=== PATIENT | female | born 1990 | race Caucasian/White ===

== ENCOUNTER 2018-07-29 22:03 | Emergency (ER) | payer OTHER ==
--- NOTE | 2018-07-29 22:13 | C.PDOC ---
Time Seen by Provider: 07/29/18 22:13 Disposition Counseled Patient/Family Regarding: Studies Performed, Diagnosis - Disposition Disposition Time: 22:13
[2018-07-29] MEDS ORDERED: Sodium Chloride 0.9% 1,000 ML IV ONE (22:42)
[2018-07-29 23:10] LABS: VENOUS BLOOD GAS BASE EXCESS -0.7 mmol/L (0.0-2.0); VENOUS BLOOD GAS PCO2 36 mmHg (40-60); VENOUS BLOOD GAS PO2 22 mm/Hg (30-55); VENOUS BLOOD PH 7.42 (7.32-7.43)
[2018-07-29 23:18] LABS: BASO % 0.3 % (0.0-2.0); HEMOGLOBIN 13.6 g/dL (11.0-16.0); LYMPH # 0.9 K/uL (1.0-4.3); LYMPH % 20.2 % (20.0-40.0); MEAN CELL VOLUME 87.5 fL (81.0-99.0); MEAN CORPUSCULAR HEMOGLOBIN 30.1 pg (27.0-31.0); MEAN CORPUSCULAR HGB CONC 34.4 g/dL (33.0-37.0); MEAN PLATELET VOLUME 10.6 fL (7.2-11.7); MONO # 0.4 K/uL (0.0-0.8); MONO % 8.2 % (0.0-10.0); NEUT # 3.3 K/uL (1.8-7.0); NEUT % 71.3 % (50.0-75.0); NRBC % 0.1 % (0.0-2.0); PLATELET COUNT 125 K/uL (130-400); RED CELL DISTRIBUTION WIDTH 13.2 % (11.5-14.5); WHITE BLOOD COUNT 4.6 K/uL (4.8-10.8)
--- NOTE | 2018-07-29 23:20 | C.PDOC ---
History Of Present Illness The patient presents to the ED for evaluation of fever, nausea and vomiting which began around 2 days ago. Patient states she recently arrived from [place] one week ago. A couple days ago, she was evaluated by her doctor and prescribed Tamiflu for flu. Patient also reports decreased PO intake. Otherwise, she denies cough, shortness of breath, and diarrhea. Time Seen by Provider: 07/29/18 22:13 Chief Complaint (Nursing): Fever History Per: Patient History/Exam Limitations: no limitations Onset/Duration Of Symptoms: Days (2) Current Symptoms Are (Timing): Still Present Location Of Pain: None Sick Contacts (Context): None Associated Symptoms: Fever, Nausea, Vomiting. denies: Cough, Diarrhea Ear Symptoms: Bilateral: None Severity: None Pain Scale Rating Of: 0 Recent travel outside of the [place]: No Additional History Per: Patient Past Medical History Reviewed: Historical Data, Nursing Documentation, Vital Signs Vital Signs: Last Vital Signs Temp 102.1 F H 07/29/18 22:21 Pulse 107 H 07/29/18 22:21 Resp 20 07/29/18 22:21 BP 106/74 07/29/18 22:21 Pulse Ox 100 07/29/18 22:21 - Medical History PMH: No Chronic Diseases Surgical History: No Surg Hx Family History: States: Unknown Family Hx - Social History Hx Alcohol Use: No Hx Substance Use: No - Immunization History Hx Tetanus Toxoid Vaccination: No Hx Influenza Vaccination: No Hx Pneumococcal Vaccination: No Review Of Systems Constitutional: Positive for: Fever, Other (decreased PO intake ) Cardiovascular: Negative for: Chest Pain, Palpitations Respiratory: Negative for: Cough, Shortness of Breath Gastrointestinal: Positive for: Nausea, Vomiting. Negative for: Abdominal Pain, Diarrhea, Constipation Genitourinary: Negative for: Dysuria, Frequency, Hematuria Musculoskeletal: Negative for: Back Pain Skin: Negative for: Rash, Lesions, Jaundice, Bruising Neurological: Negative for: Weakness, Numbness Physical Exam - Physical Exam Appears: Non-toxic, No Acute Distress Skin: Warm, Dry Head: Normacephalic Eye(s): bilateral: Normal Inspection Oral Mucosa: Moist Neck: Supple Chest: Symmetrical, No Deformity, No Tenderness Cardiovascular: Rhythm Regular, No Murmur Respiratory: No Rales, No Rhonchi, No Wheezing, Other (speaking in complete sentences ) Gastrointestinal/Abdominal: Soft, No Tenderness, No Guarding, No Rebound Extremity: Normal ROM, Capillary Refill (less than 2 seconds ) Neurological/Psych: Oriented x3 ED Course And Treatment - Laboratory Results Result Diagrams: 07/29/18 23:10 07/29/18 23:10 Lab Results: pO2 22 mm/Hg (30-55) L 07/29/18 23:07 VBG pH 7.42 (7.32-7.43) 07/29/18 23:07 VBG pCO2 36 mmHg (40-60) L 07/29/18 23:07 VBG HCO3 22.8 mmol/L 07/29/18 23:07 VBG Total CO2 24.5 mmol/L (22-28) 07/29/18 23:07 VBG O2 Sat (Calc) 42.7 % (40-65) 07/29/18 23:07 VBG Base Excess -0.7 mmol/L (0.0-2.0) L 07/29/18 23:07 VBG Potassium 4.5 mmol/L (3.6-5.2) 07/29/18 23:07 Sodium 133.0 mmol/l (132-148) 07/29/18 23:07 Chloride 102.0 mmol/L (98-107) 07/29/18 23:07 Glucose 105 mg/dl (65-105) 07/29/18 23:07 Lactate 1.2 mmol/L (0.7-2.1) 07/29/18 23:07 O2 Sat by Pulse Oximetry: 100 Pulse Ox Interpretation: Normal - CT Scan/US CT A/P Other Rad Studies (CT/US): Read By Radiologist, Radiology Report Reviewed CT/US Interpretation: CT SCAN OF THE ABDOMEN AND PELVIS WITH CONTRAST. CLINICAL HISTORY: Abdominal pain. Elevated LFTs. TECHNIQUE: Multiple axial and coronal CT images were obtained through the abdomen and pelvis after administration of intravenous contrast material. COMMENTS: 2.9 cm left ovarian cyst. Mild diffu se thickening of the bladder. Fluid-filled stomach, small and large bowels. Moderate hepatomegaly. Minimal amount of reactive pericholecystic free fluid. There is no intra or extrahepatic biliary ductal dilatation. The spleen is normal. The gallbladder is within normal limits. The pancreas is of normal contour and attenuation characteristics. There is no evidence of adrenal mass. Both kidneys demonstrate prompt and equal nephrograms. The kidneys are normal in size, shape and configuration. There is no evidence of renal or ureteral mass. No renal or ureteral calculi are identified. There is no hydroureter or hydronephrosis. No evidence for appendicitis. There is no bowel wall thickening. No evidence for small or large bowel obstruction. There is no evidence of intrinsic or extrinsic bladder mass. Images of the lung bases show no evidence of pleural or parenchymal mass. There are no pleural effusions. The bony structures are free of lytic or blastic lesions. IMPRESSION: Uncompli cated gastroenteritis. Hepatomegaly. Please evaluate to exclude hepatitis. Minimal reactive pericholecystic free fluid. No evidence of cholelithiasis. Diffuse thickening of the bladder, underdistention versus mild cystitis. pt feels fine and wants to go home Progress Note: Bloodwork, urinalysis and CT A/P ordered and reviewed. Pepcid IVP, Zofran IVP and IV Fluids given. Reevaluation Time: 03:48 Reassessment Condition: Improved Disposition Counseled Patient/Family Regarding: Studies Performed, Diagnosis, Need For Followup, Rx Given - Disposition Referrals: [facility] [Outside] Disposition: HOME/ ROUTINE Disposition Time: 00:35 Condition: FAIR Additional Instructions: Please return if symptoms recur Prescriptions: Ondansetron ODT [Zofran ODT] 1 odt PO BID PRN #6 odt PRN Reason: Nausea/Vomiting Instructions: Fever, Adult (DC), Nausea and Vomiting, Adult (DC) Forms: [facility] (Maori) - Clinical Impression Clinical Impression: Fever, Vomiting, Elevated liver enzymes - Scribe Statement The provider has reviewed the documentation as recorded by the Scribe (Swati Segovia) Provider Attestation: All medical record entries made by the Scribe were at my direction and personally dictated by me. I have reviewed the chart and agree that the record accurately reflects my personal performance of the history, physical exam, medical decision making, and the department course for this patient. I have also personally directed, reviewed, and agree with the discharge instructions and disposition.
[2018-07-29 23:28] LABS: ALB/GLOB RATIO 1.2 (1.0-2.1); ALBUMIN 4.3 g/dL (3.5-5.0); ALT/SGPT 77 U/L (9-52); AST/SGOT 75 U/L (14-36); BLOOD UREA NITROGEN 11 mg/dL (7-17); CALCIUM 9.4 mg/dl (8.6-10.4); GFR NON-AFRICAN AMERICAN > 60; LIPASE 50 U/L (23-300)
[2018-07-29 23:33] LABS: HCG,QUALITATIVE URINE NEGATIVE (NEGATIVE)
[2018-07-29 23:48] LABS: SQUAMOUS EPITHIAL 5 /hpf (0-5); URINE BACTERIA OCC (<OCC); URINE BILIRUBIN NEGATIVE (NEGATIVE); URINE BLOOD NEGATIVE (NEGATIVE); URINE CLARITY Hazy (Clear); URINE COLOR Amber (YELLOW); URINE GLUCOSE (UA) NORMAL (Normal); URINE LEUKOCYTE ESTERASE NEG Leu/uL (Negative); URINE PROTEIN 1+ mg/dL (NEGATIVE)
[2018-07-30 00:44] LABS: INTRACELLULAR PARASITE NEGATIVE (NEGATIVE)
[2018-07-30] MEDS ORDERED: Iodixanol 320 mg/ml 150 ml Bottle IV ONE (01:26)
[2018-07-30 03:27] VITALS: O2SAT 100
[2018-07-30 04:42] VITALS: BP 119/64; PULSE 91; RESP 17; TEMP 99.6
[2018-07-30 08:28] LABS: HEPATITIS B SURFACE AG Negative (NEGATIVE)
[2018-07-30 08:35] LABS: HEPATITIS A IGM NEGATIVE (NEGATIVE); HEPATITIS B CORE AB NEGATIVE (NEGATIVE)
[2018-07-30 08:45] LABS: HEPATITIS C ANTIBODY NEGATIVE (NEGATIVE)
--- NOTE | 2018-07-30 11:23 | CT ---
Date of service: 07/30/2018 PROCEDURE: CT Abdomen and Pelvis with contrast HISTORY: abd pain, elevated lft's COMPARISON: None. TECHNIQUE: Contrast dose: 100 mL Visipaque 320 Radiation dose: Total exam DLP = 320.46 mGy-cm. This CT exam was performed using one or more of the following dose reduction techniques: Automated exposure control, adjustment of the mA and/or kV according to patient size, and/or use of iterative reconstruction technique. FINDINGS: LOWER THORAX: Unremarkable. LIVER: Mild hepatomegaly. Smooth contour. There is a nonspecific low-density 6 mm mass in the medial segment of the left hepatic lobe abutting the anterior capsule, nonspecific. No other mass is identified. There is no biliary ductal dilatation. The liver is normal in attenuation. GALLBLADDER AND BILE DUCTS: Wall mildly thickened, nonspecific. No calcified gallstones. Differential diagnosis would include hepatitis, cholecystitis, pancreatitis, or intrinsic appendix cellular disease. PANCREAS: Unremarkable. No gross lesion or ductal dilatation. SPLEEN: Unremarkable. ADRENALS: Unremarkable. No mass. KIDNEYS AND URETERS: Unremarkable. No hydronephrosis. No solid mass. VASCULATURE: Unremarkable. No aortic aneurysm. No aortic atherosclerotic calcification or mural plaque present. Incidentally noted retroaortic left renal vein, a normal variant. BOWEL: There is circumferential mural thickening of the 2nd portion of the duodenum, nonspecific. No bowel obstruction. There is diverticulosis of the hepatic flexure of the colon without evidence of diverticulitis. There is mild circumferential mural thickening of several loops of proximal jejunum, a nonspecific finding. Consistent with nonspecific enteritis. APPENDIX: Normal appendix. PERITONEUM: Trace fluid in the cul-de-sac. LYMPH NODES: No retroperitoneal or pelvic lymphadenopathy. Few subcentimeter nodes are identified medial to the ascending colon, nonspecific. BLADDER: Unremarkable. REPRODUCTIVE: Unremarkable uterus. Left ovarian cyst, 2.9 cm. Consider correlation with transvaginal pelvic ultrasound. BONES: No acute fracture. OTHER FINDINGS: None. IMPRESSION: Mild hepatomegaly. Nonspecific 6 mm mass in the medial segment of the left hepatic lobe. Nonspecific circumferential mural thickening of the 2nd portion of the duodenum, nonspecific. Findings could also consistent with mild nonspecific enteritis involving proximal jejunum.. No bowel obstruction. 2.9 cm left ovarian cyst. Consider correlation with transvaginal pelvic ultrasound examination. Trace fluid in cul-de-sac. Nonspecific mural thickening of the gallbladder. See above. The preliminary findings for this examination were reported by [facility] at 3:23 a.m. on 07/30/2018.. There is concurrence of this report with the preliminary findings.
== END 2018-07-30 04:45 | disposition home or self-care (01) ==
LOC: C.ER 22:03
DX: R50.9 Fever, unspecified (principal); R11.10 Vomiting, unspecified; R74.8 Abnormal levels of other serum enzymes
CPT/HCPCS: 74177; 80053; 80074; 81001; 82803; 83690; 84703; 85025; 87040; 87205; 87207; 96361; 96374; 96375; 99285; J2405; J7030; Q9967

== ENCOUNTER 2018-07-31 15:12 | Inpatient (IN) | payer OTHER ==
[2018-07-31] MEDS ORDERED: Sodium Chloride 0.9% 1,000 ML IV STA (16:45)
[2018-07-31 17:07] LABS: BASO % 0.5 % (0.0-2.0); LYMPH # 1.4 K/uL (1.0-4.3); LYMPH % 32.3 % (20.0-40.0); MEAN CELL VOLUME 87.1 fL (81.0-99.0); MEAN CORPUSCULAR HEMOGLOBIN 29.2 pg (27.0-31.0); MEAN CORPUSCULAR HGB CONC 33.5 g/dL (33.0-37.0); MEAN PLATELET VOLUME 10.6 fL (7.2-11.7); MONO # 0.4 K/uL (0.0-0.8); NEUT # 2.5 K/uL (1.8-7.0); NEUT % 58.2 % (50.0-75.0); NRBC % 0.2 % (0.0-2.0); RBC 4.46 Mil/uL (3.80-5.20); RED CELL DISTRIBUTION WIDTH 13.6 % (11.5-14.5); WHITE BLOOD COUNT 4.3 K/uL (4.8-10.8)
[2018-07-31] MEDS ORDERED: Sodium Chloride 0.9% 1,000 ML ONE ×2 (17:07→18:17)
[2018-07-31 17:11] LABS: VENOUS BLOOD GAS BASE EXCESS 2.4 mmol/L (0.0-2.0); VENOUS BLOOD GAS PCO2 38 mmHg (40-60); VENOUS BLOOD GAS PO2 25 mm/Hg (30-55); VENOUS BLOOD PH 7.45 (7.32-7.43)
[2018-07-31 17:25] LABS: ALB/GLOB RATIO 1.2 (1.0-2.1); ALBUMIN 3.9 g/dL (3.5-5.0); ALT/SGPT 65 U/L (9-52); AST/SGOT 68 U/L (14-36); BLOOD UREA NITROGEN 5 mg/dL (7-17); CALCIUM 8.9 mg/dl (8.6-10.4); GFR NON-AFRICAN AMERICAN > 60
--- NOTE | 2018-07-31 17:26 | C.PDOC ---
History Of Present Illness 28 y/o female returns to the ER for positive blood culture for negative gram rods. Patient states that she recently returned from [place]. Patient was evaluated by her PMD for flu-like symptoms and she was prescribed Tamiflu. She was also evaluated by for fever and vomiting for the past 1 week in [facility] ER on 07/29/18. Patient had labwork and blood culture and she was discharged home. Patient was called today for positive blood culture and instructed to return to the ER. She notes that she is taking Tamiflu. She has been taking Tylenol every 4 hours for fever, however the fever returns after 2-3 years. She states that she has headache, dizziness, and generalized weakness.Denies having CP,SOB, vomiting, and abdominal pain. PMD: Dr.Anjali Lamar Time Seen by Provider: 07/31/18 16:31 Chief Complaint (Nursing): Flu-like Symptoms History Per: Patient History/Exam Limitations: no limitations Onset/Duration Of Symptoms: Days Current Symptoms Are (Timing): Still Present Severity: Moderate Past Medical History Reviewed: Historical Data, Nursing Documentation, Vital Signs Vital Signs: Last Vital Signs Temp 98.3 F 07/31/18 15:41 Pulse 88 07/31/18 15:41 Resp 20 07/31/18 15:41 BP 105/73 07/31/18 15:41 Pulse Ox 100 07/31/18 15:41 - Medical History PMH: No Chronic Diseases Other Surgeries: Hx of surgeries Family History: States: No Known Family Hx - Social History Hx Alcohol Use: No Hx Substance Use: No - Immunization History Hx Tetanus Toxoid Vaccination: No Hx Influenza Vaccination: No Hx Pneumococcal Vaccination: No Review Of Systems Except As Marked, All Systems Reviewed And Found Negative. Constitutional: Positive for: Fever, Weakness. Negative for: Chills Cardiovascular: Negative for: Chest Pain Respiratory: Negative for: Shortness of Breath Gastrointestinal: Negative for: Nausea, Vomiting Neurological: Positive for: Headache, Dizziness Physical Exam - Physical Exam Appears: No Acute Distress, Other (dehydrated) Skin: Normal Color, Warm, Dry Head: Atraumatic, Normacephalic Eye(s): bilateral: Normal Inspection Ear(s): Bilateral: Normal Nose: Normal Oral Mucosa: Dry Lips: Other (dry) Throat: Normal, No Erythema, No Exudate Neck: Supple Chest: Symmetrical Cardiovascular: Rhythm Regular Respiratory: Normal Breath Sounds, No Rales, No Rhonchi, No Wheezing Gastrointestinal/Abdominal: Normal Exam, Soft, No Tenderness, No Guarding, No Rebound Neurological/Psych: Oriented x3, Normal Speech ED Course And Treatment - Laboratory Results Result Diagrams: 07/31/18 17:02 07/31/18 17:02 Lab Results: pO2 25 mm/Hg (30-55) L 07/31/18 17:08 VBG pH 7.45 (7.32-7.43) H 07/31/18 17:08 VBG pCO2 38 mmHg (40-60) L 07/31/18 17:08 VBG HCO3 25.5 mmol/L 07/31/18 17:08 VBG Total CO2 27.6 mmol/L (22-28) 07/31/18 17:08 VBG O2 Sat (Calc) 52.5 % (40-65) 07/31/18 17:08 VBG Base Excess 2.4 mmol/L (0.0-2.0) H 07/31/18 17:08 VBG Potassium 3.4 mmol/L (3.6-5.2) L 07/31/18 17:08 Sodium 136.0 mmol/l (132-148) 07/31/18 17:08 Chloride 106.0 mmol/L (98-107) 07/31/18 17:08 Glucose 82 mg/dl (65-105) 07/31/18 17:08 Lactate 1.4 mmol/L (0.7-2.1) 07/31/18 17:08 O2 Sat by Pulse Oximetry: 100 (RA) Pulse Ox Interpretation: Normal Medical Decision Making Medical Decision Making: Impression: Dehydration secondary to Flu, Abdominal Pain Plan: --Labs --IV Fluids --Zofran IV 1752 Pt with normal WBC. Liver enzymes continue to be elevated. Pt to be started on Zosyn and cultures have been sent. Spoke with Dr. Silver and pt to be admitted to his service. Disposition - Disposition Disposition: HOSPITALIZED Disposition Time: 17:52 Condition: STABLE - Clinical Impression Clinical Impression: Bacteremia - Scribe Statement The provider has reviewed the documentation as recorded by the Sole Clement Provider Attestation: All medical record entries made by the Wilmanibe were at my direction and personally dictated by me. I have reviewed the chart and agree that the record accurately reflects my personal performance of the history, physical exam, medical decision making, and the department course for this patient. I have also personally directed, reviewed, and agree with the discharge instructions and disposition. Decision To Admit - Pt Status Changed To: Hospital Disposition Of: Observation - . Bed Request Type: Regular Admitting Physician: Sajan Silver Patient Diagnosis: Bacteremia
[2018-07-31] MEDS ORDERED: Piperacillin/Tazobact 3.375 gm 100 ML IVPB ONE (18:17)
[2018-07-31] MEDS: Sodium Chloride 0.9% 1,000 ML IV SCH (18:21)
[2018-07-31] MEDS: Piperacill/Tazo 3.375gm in Dex 3.375 GM/50 ML BAG IVPB SCH ×2 (18:21→23:51)
[2018-07-31 19:14] LABS: SQUAMOUS EPITHIAL 1 /hpf (0-5); URINE BACTERIA RARE (<OCC); URINE BILIRUBIN NEGATIVE (NEGATIVE); URINE BLOOD NEGATIVE (NEGATIVE); URINE CLARITY Clear (Clear); URINE COLOR Yellow (YELLOW); URINE GLUCOSE (UA) NORMAL (Normal); URINE LEUKOCYTE ESTERASE NEG Leu/uL (Negative); URINE PROTEIN NEGATIVE (NEGATIVE)
--- NOTE | 2018-08-01 00:05 | CP.PCM.HP ---
Present on Admission - Present on Admission Any Indicators Present on Admission: No Past Patient History - Infectious Disease Hx of Infectious Diseases: None - Past Social History Smoking Status: Never Smoked - PSYCHIATRIC Hx Substance Use: No - SURGICAL HISTORY Hx Surgeries: Yes Hx Section: Yes - ANESTHESIA Hx Anesthesia: Yes Hx Anesthesia Reactions: No Meds Allergies/Adverse Reactions: Allergies Allergy/AdvReac Type Severity Reaction Status Date / Time No Known Allergies Allergy Verified 07/31/18 15:44 Results - Vital Signs Recent Vital Signs: Last Vital Signs Temp 98.3 F 07/31/18 22:30 Pulse 78 07/31/18 22:30 Resp 20 07/31/18 22:30 BP 117/61 07/31/18 22:30 Pulse Ox 100 07/31/18 22:30 - Labs Result Diagrams: 07/31/18 17:02 07/31/18 17:02 Labs: Laboratory Results - last 24 hr 07/31/18 07/31/18 07/31/18 17:02 17:02 17:08 WBC 4.3 L RBC 4.46 Hgb 13.0 Hct 38.8 MCV 87.1 MCH 29.2 MCHC 33.5 RDW 13.6 Plt Count 160 MPV 10.6 Neut % (Auto) 58.2 Lymph % (Auto) 32.3 [place] % (Auto) 9.0 Eos % (Auto) 0.0 Baso % (Auto) 0.5 Neut # (Auto) 2.5 Lymph # (Auto) 1.4 [place] # (Auto) 0.4 Eos # (Auto) 0.0 Baso # (Auto) 0.0 pO2 25 L VBG pH 7.45 H VBG pCO2 38 L VBG HCO3 25.5 VBG Total CO2 27.6 VBG O2 Sat (Calc) 52.5 VBG Base Excess 2.4 H VBG Potassium 3.4 L Glucose 82 Lactate 1.4 Sodium 136 136.0 Potassium 3.9 Chloride 101 106.0 Carbon Dioxide 29 Anion Gap 11 BUN 5 L Creatinine 0.5 L Est GFR ( Amer) > 60 Est GFR (Non-Af Amer) > 60 Random Glucose 97 Calcium 8.9 Total Bilirubin 0.5 AST 68 H ALT 65 H Alkaline Phosphatase 137 H Total Protein 7.1 Albumin 3.9 Globulin 3.3 Albumin/Globulin Ratio 1.2 Venous Blood Potassium 3.4 L Urine Color Urine Clarity Urine pH Ur Specific [place] Urine Protein Urine Glucose (UA) Urine Ketones Urine Blood Urine Nitrate Urine Bilirubin Urine Urobilinogen Ur Leukocyte Esterase Urine WBC (Auto) Urine RBC (Auto) Ur Squamous Epith Cells Urine Bacteria 07/31/18 18:56 WBC RBC Hgb Hct MCV MCH MCHC RDW Plt Count MPV Neut % (Auto) Lymph % (Auto) [place] % (Auto) Eos % (Auto) Baso % (Auto) Neut # (Auto) Lymph # (Auto) [place] # (Auto) Eos # (Auto) Baso # (Auto) pO2 VBG pH VBG pCO2 VBG HCO3 VBG Total CO2 VBG O2 Sat (Calc) VBG Base Excess VBG Potassium Glucose Lactate Sodium Potassium Chloride Carbon Dioxide Anion Gap BUN Creatinine Est GFR ( Amer) Est GFR (Non-Af Amer) Random Glucose Calcium Total Bilirubin AST ALT Alkaline Phosphatase Total Protein Albumin Globulin Albumin/Globulin Ratio Venous Blood Potassium Urine Color Yellow Urine Clarity Clear Urine pH 7.0 Ur Specific [place] 1.008 Urine Protein Negative Urine Glucose (UA) Normal Urine Ketones Negative Urine Blood Negative Urine Nitrate Negative Urine Bilirubin Negative Urine Urobilinogen 2.0 H Ur Leukocyte Esterase Neg Urine WBC (Auto) < 1 Urine RBC (Auto) < 1 Ur Squamous Epith Cells 1 Urine Bacteria Rare
[2018-08-01] MEDS: Sodium Chloride 0.9% 1,000 ML IV SCH ×2 (03:59→14:35)
[2018-08-01] MEDS: Piperacill/Tazo 3.375gm in Dex 3.375 GM/50 ML BAG IVPB SCH ×3 (05:15→19:07)
--- NOTE | 2018-08-01 05:49 | HP ---
CHIEF COMPLAINT: Positive blood cultures. HISTORY OF PRESENT ILLNESS: This is a 28-year-old female with no significant past medical history. For almost one week, she is sick with fever, chills, body ache, and tiredness. She visited to emergency room. She had flu symptoms. She was started on Tamiflu. She has a recent visit to [place]. The patient was evaluated in [facility] Emergency Room 07/29/2018, and the patient was discharged. Her lab work was done, and the patient's blood cultures are positive. The patient was called back. The patient is in the hospital. At the moment, she has generalized weakness, chills, rigor, but she denies any history of abdominal pain, nausea, vomiting, or diarrhea. She denies any history of dysuria, hematuria, or pyuria. She denies any history of sneezing, itchy eyes, or itchy nose. The patient denies any history of cough, sore throat, or runny nose. There is no history of trauma, fall, or loss of consciousness. PAST MEDICAL HISTORY: Nothing significant. SOCIAL HISTORY: Nonsmoker, non-EtOH user. CURRENT MEDICATIONS: Tamiflu. PHYSICAL EXAMINATION: GENERAL: A young female, not in any acute distress. VITAL SIGNS: Blood pressure 105/73, pulse 80, respiratory rate 20, temperature 98.3. SKIN: No rashes. No bruises. No purpura. No petechiae. HEENT: Atraumatic and normocephalic. Negative pallor. Negative jaundice. Extraocular movements are intact. NECK: Supple. No JVD. No lymph node. No thyromegaly. No carotid bruit. CHEST WALL: Bilateral symmetrical expansion. LUNGS: Bilaterally clear. No rales. No rhonchi. CARDIOVASCULAR SYSTEM: PMI in fifth intercostal space. S1 and S2, regular. No heave. No thrill. ABDOMEN: Soft and nontender. Bowel sounds are positive. RECTAL: No masses. No bleed. EXTREMITIES: No clubbing, cyanosis, or edema. CENTRAL NERVOUS SYSTEM: Awake, alert, and oriented x3. ASSESSMENT: 1. Gram-negative septicemia. Etiology is unclear. It could be urinary tract infection versus intra-abdominal source of sepsis. Seems to be enterocolitis. 2. Dehydration. PLAN: Admit. Detailed orders are written. Seen and examined. Sajan Silver MD
--- NOTE | 2018-08-01 23:13 | CP.PCM.PN ---
Subjective - Date & Time of Evaluation Date of Evaluation: 08/01/18 Time of Evaluation: 19:00 - Subjective Subjective: dict Objective - Vital Signs/Intake and Output Vital Signs (last 24 hours): Temp Pulse Resp BP Pulse Ox 97.3 F L 77 20 100/65 99 08/01/18 16:04 08/01/18 16:04 08/01/18 16:04 08/01/18 16:04 08/01/18 16:04 Intake and Output: 08/01/18 08/02/18 18:59 06:59 Intake Total 1280 1000 Balance 1280 1000 - Medications Medications: Current Medications Acetaminophen (Tylenol 325mg Tab) 650 mg PO Q6 PRN PRN Reason: Headache Last Admin: 08/01/18 10:38 Dose: 650 mg Sodium Chloride (Sodium Chloride 0.9%) 1,000 mls @ 100 mls/hr IV .Q10H TWIN Last Admin: 08/01/18 14:35 Dose: 100 mls/hr Piperacillin Sod/Tazobactam Sod (Zosyn 3.375 Gm Iv Premix) 3.375 gm in 50 mls @ 100 mls/hr IVPB Q6H TWIN; Protocol Last Admin: 08/01/18 19:07 Dose: 100 mls/hr Influenza Virus Vaccine (Flucelvax Quad [id number] Syr) 60 mcg IM .ONCE ONE Stop: 08/02/18 10:01 Ondansetron HCl (Zofran Inj) 4 mg IVP Q6 PRN PRN Reason: Nausea/Vomiting Last Admin: 08/01/18 19:24 Dose: 4 mg Pneumococcal Polyvalent Vaccine (Pneumovax 23 Vaccine) 0.5 ml IM .ONCE ONE Stop: 08/02/18 10:01 - Labs Labs: 07/31/18 17:02 07/31/18 17:02
[2018-08-02] MEDS: Piperacill/Tazo 3.375gm in Dex 3.375 GM/50 ML BAG IVPB SCH ×2 (00:17→05:28)
[2018-08-02] MEDS: Sodium Chloride 0.9% 1,000 ML IV SCH ×4 (03:54→21:00)
--- NOTE | 2018-08-02 04:28 | PN ---
DATE: 08/01/2018 SUBJECTIVE: The patient is afebrile. Nausea. No vomiting. The patient is on antibiotics. No fever. She is on Zosyn. She is not in any distress. . PHYSICAL EXAMINATION: VITAL SIGNS: Blood pressure 100/65, pulse 77, respiratory rate 20, temperature 97.3. LUNGS: Clear. No rales. No rhonchi. CARDIOVASCULAR SYSTEM: PMI not localized. S1 and S2, regular. ABDOMEN: Soft. Nontender. Bowel sounds are positive. ASSESSMENT: 1. Septicemia, gram negative, which is due to diverticulitis. Sensitivity is pending. The patient is on Zosyn and she is afebrile. 2. Diverticulitis. 3. Dehydration. PLAN: Antibiotics. Monitor the patient. Sajan Silver MD
[2018-08-02] MEDS ORDERED: Pneumococcal 23-Valent Vaccine IM ONE (10:00)
[2018-08-02] MEDS ORDERED: Influenza Vaccine 60 mcg/0.5 mL SYR (4YR UP) IM ONE (10:00)
[2018-08-02] MEDS: cefTRIAXone 2 GM in Sodium Chloride 0.9% 100 ML IVPB SCH (10:19)
[2018-08-02 14:54] LABS: HEPATITIS B SURFACE AG Negative (NEGATIVE)
[2018-08-02 15:06] LABS: HEPATITIS A IGM NEGATIVE (NEGATIVE); HEPATITIS B CORE AB NEGATIVE (NEGATIVE)
[2018-08-02 15:12] LABS: HEPATITIS C ANTIBODY NEGATIVE (NEGATIVE)
--- NOTE | 2018-08-02 18:09 | CP.PCM.CON ---
History of Present Illness - History of Present Illness History of Present Illness: 28 y/o female admitted for positive blood culture for negative gram rods after recent ER visit for fever . Patient states that she recently returned from [place]. And evaluated in ER for fever and vomiting for 1 week in [facility] [place] ER on 07/29/18. Patient had labwork and blood culture as well as CT Abdomen and she was discharged home. Then Patient was evaluated by Dr Sherman and was prescribed Tamiflu. Yesterday Patient was called today for positive blood culture and instructed to return to the ER. . She states that she has headache, dizziness, and generalized weakness. Denies having CP,SOB, vomiting, and abdominal pain. Referred for ID eval for positive blood cultures Started on IV antibiotics upon admission Review of Systems - Review of Systems All systems: reviewed and no additional remarkable complaints except - Constitutional Constitutional: As Per HPI - EENT Eyes: absent: As Per HPI, Blind Spots, Blurred Vision, Change in Vision, Decreased Night Vision, Diplopia, Discharge, Dry Eye, Exophthalmos, Floaters, Irritation, Itchy Eyes, Loss of Peripheral Vision, Pain, Photophobia, Requires Corrective Lenses, Sees Flashes, Spots in Vision, Tunnel Vision, Other Visual Disturbances, Loss of Vision, Other Ears: absent: As Per HPI, Decreased Hearing, Ear Discharge, Ear Pain, Tinnitus, Abnormal Hearing, Disequilibrium, Dizziness, Other Nose/Mouth/Throat: absent: As Per HPI, Epistaxis, Nasal Congestion, Nasal Discharge, Nasal Obstruction, Nasal Trauma, Nose Pain, Post Nasal Drip, Sinus Pain, Sinus Pressure, Bleeding Gums, Change in Voice, Dental Pain, Dry Mouth, Dysphagia, Halitosis, Hoarsness, Lip Swelling, Mouth Lesions, Mouth Pain, Odynophagia, Sore Throat, Throat Swelling, Tongue Swelling, Facial Pain, Neck Pain, Neck Mass, Other - Breasts Breasts: absent: As Per HPI, Change in Shape, Mass, Pain, Nipple Discharge, Nipple Inversion, Skin Changes, Swelling, Other - Cardiovascular Cardiovascular: absent: As Per HPI, Acrocyanosis, Chest Pain, Chest Pain at Rest, Chest Pain with Activity, Claudication, Diaphoresis, Dyspnea, Dyspnea on Exertion, Edema, Irregular Heart Rhythm, Pain Radiating to Arm/Neck/Jaw, Leg Edema, Leg Ulcers, Lightheadedness, Orthopnea, Palpitations, Paroxysmal Nocturnal Dyspnea, Pedal Edema, Radiating Pain, Rapid Heart Rate, Slow Heart Rate, Syncope, Other - Respiratory Respiratory: absent: As Per HPI, Cough, Dyspnea, Hemoptysis, Dyspnea on Exertion, Wheezing, Snoring, Stridor, Pain on Inspiration, Chest Congestion, Excessive Mucous Production, Change in Mucous Color, Pain with Coughing, Other - Gastrointestinal Gastrointestinal: As Per HPI - Genitourinary Genitourinary: absent: As Per HPI, Change in Urinary Stream, Difficulty Urinating, Dysuria, Flank Pain, Hematuria, Pyuria, Nocturia, Urinary Incontinence, Urinary Frequency, Urinary Hesitance, Urinary Urgency, Voiding Freq/Small Amts, Freq UTI, Hx Renal/Bladder Calculi, Hx /Renal Surgery, Bladder Distension, Other - Reproductive: Female Reproductive:Female: absent: As Per HPI, Amenorrhea, Amenorrhea/ Control, Currently Menstual, Cycle <21 Days, Cycle >35 Days, Cycle Variable, Menses 1-7 Days, Menses >/= 8 Days, Menses Variable, Cycle > 4 Weeks Between, No Menses for 6 Months, Heavy Menses, Light Menses, Normal Menses, Spotting Between Cycles, S/P Hysterectomy, Menopausal, Post Menopausal, Premenarche, Abnormal Vaginal Bleeding, Dysmenorrhea, Dyspareunia, Genital Lesions, Genital Pruritis, Pelvic Pain, Prolapse Symptoms, Sexual Dysfunction, Vaginal Discharge, Vaginal Dryness, Vaginal Odor, Vaginal Pruritis, Other - Menstruation Menstruation: absent: As Per HPI, Amenorrhea, Amenorrhea/ Control, Currently Menstual, Cycle <21 Days, Cycle >35 Days, Cycle Variable, Menses 1-7 Days, Menses >/= 8 Days, Menses Variable, Cycle > 4 Weeks Between, No Menses for 6 Months, Heavy Menses, Light Menses, Normal Menses, Spotting Between Cycles, S/P Hysterectomy, Menopausal, Post Menopausal, Premenarche, Abnormal Vaginal Bleeding, Dysmenorrhea, Other - Musculoskeletal Musculoskeletal: absent: As Per HPI, Abnormal Gait, Arthralgias, Atrophy, Back Pain, Deformity, Joint Swelling, Limited Range of Motion, Loss of Height, Muscle Cramps, Muscle Weakness, Myalgias, Neck Pain, Numbness, Radiating Pain into Limb, Stiffness, Tingling, Other - Integumentary Integumentary: absent: As Per HPI, Acne, Alopecia, Bleeding Lesions, Change in Hair, Change in Nails, Change in Pigmentation, Changing Lesions, Dry Skin, Erythema, Furuncle, Hirsutism, Lesions, New Lesions, Non-Healing Lesions, Photosensitivity, Pruritus, Rash, Skin Pain, Skin Ulcer, Sores, Striae, Swelling, Unusual Bruising, Wounds, Jaundice, Other - Neurological Neurological: absent: As Per HPI, Abnormal Gait, Abnormal Hearing, Abnormal Movements, Abnormal Speech, Behavioral Changes, Burning Sensations, Confusion, Convulsions, Disequilibrium, Dizziness, Numbness, Focal Weakness, Frequent Falls, Headaches, Lack of Coordination, Loss of Vision, Memory Loss, Paresthesias, Radicular Pain, Restless Legs, Sensory Deficit, Syncope, Tingling, Tremor, Vertigo, Weakness, Other Visual Disturbances, Other - Psychiatric Psychiatric: absent: As Per HPI, Abnormal Sleep Pattern, Anhedonia, Anxiety, Auditory Hallucinations, Behavioral Changes, Change in Appetite, Change in Libido, Confusion, Depression, Difficulty Concentrating, Hallucinations, Homicidal Ideation, Hopelessness, Irritability, Memory Loss, Mood Swings, Panic Attacks, Paranoia, Suicidal Ideation, Visual Hallucinations, Tactile Hallucinations, Other - Endocrine Endocrine: absent: As Per HPI, Change in Body Appearance, Change in Libido, Cold Intolorance, Deepening of Voice, Excessive Sweating, Fatigue, Flushing, Heat Intolorance, Increase in Ring/Shoe/Hat Size, Palpitations, Polydipsia, Polyphagia, Polyuria, Other - Hematologic/Lymphatic Hematologic: absent: As Per HPI, Easy Bleeding, Easy Bruising, Lymphadenopathy, Other Past Patient History - Infectious Disease Hx of Infectious Diseases: None - Past Medical History & Family History Past Medical History?: Yes - Past Social History Smoking Status: Never Smoked - CARDIAC Hx Cardiac Disorders: No - PULMONARY Hx Respiratory Disorders: No - NEUROLOGICAL Hx Neurological Disorder: No - HEENT Hx HEENT Problems: No - RENAL Hx Chronic Kidney Disease: No - ENDOCRINE/METABOLIC Hx Endocrine Disorders: No - HEMATOLOGICAL/ONCOLOGICAL Hx Blood Disorders: No - INTEGUMENTARY Hx Dermatological Problems: No - MUSCULOSKELETAL/RHEUMATOLOGICAL Hx Falls: No - GASTROINTESTINAL Hx Gastrointestinal Disorders: No - GENITOURINARY/GYNECOLOGICAL Hx Genitourinary Disorders: No - PSYCHIATRIC Hx Psychophysiologic Disorder: No Hx Substance Use: No - SURGICAL HISTORY Hx Surgeries: Yes Hx Section: Yes - ANESTHESIA Hx Anesthesia: Yes Hx Anesthesia Reactions: No Hx Malignant Hyperthermia: No Meds Allergies/Adverse Reactions: Allergies Allergy/AdvReac Type Severity Reaction Status Date / Time No Known Allergies Allergy Verified 07/31/18 15:44 - Medications Medications: Current Medications Acetaminophen (Tylenol 325mg Tab) 650 mg PO Q6 PRN PRN Reason: Headache Last Admin: 08/02/18 04:39 Dose: 650 mg Sodium Chloride (Sodium Chloride 0.9%) 1,000 mls @ 100 mls/hr IV .Q10H TWIN Last Admin: 08/02/18 16:44 Dose: 100 mls/hr Ceftriaxone Sodium 2 gm/ (Sodium Chloride) 100 mls @ 100 mls/hr IVPB DAILY TWIN; Protocol Last Admin: 08/02/18 10:19 Dose: 100 mls/hr Ondansetron HCl (Zofran Inj) 4 mg IVP Q6 PRN PRN Reason: Nausea/Vomiting Last Admin: 08/01/18 19:24 Dose: 4 mg Physical Exam - Constitutional Appears: Non-toxic, No Acute Distress, Chronically Ill - Head Exam Head Exam: ATRAUMATIC, NORMAL INSPECTION, NORMOCEPHALIC - Eye Exam Eye Exam: EOMI, Normal appearance, PERRL Pupil Exam: NORMAL ACCOMODATION, PERRL - ENT Exam ENT Exam: Mucous Membranes Moist, Normal Exam - Neck Exam Neck exam: Positive for: Normal Inspection - Respiratory Exam Respiratory Exam: Clear to Auscultation Bilateral, NORMAL BREATHING PATTERN - Cardiovascular Exam Cardiovascular Exam: REGULAR RHYTHM - GI/Abdominal Exam GI & Abdominal Exam: Normal Bowel Sounds, Soft. absent: Tenderness - Rectal Exam Rectal Exam: Deferred - Extremities Exam Extremities exam: Positive for: normal inspection - Back Exam Back exam: NORMAL INSPECTION - Neurological Exam Neurological exam: Alert, CN II-XII Intact, Normal Gait, Oriented x3, Reflexes Normal - Psychiatric Exam Psychiatric exam: Normal Affect, Normal Mood - Skin Skin Exam: Dry, Intact, Normal Color, Warm Results - Vital Signs Recent Vital Signs: Last Vital Signs Temp 98.1 F 08/02/18 16:23 Pulse 88 08/02/18 16:23 Resp 20 08/02/18 16:23 BP 113/74 08/02/18 16:23 Pulse Ox 98 08/02/18 16:23 - Labs Result Diagrams: 07/31/18 17:02 07/31/18 17:02 Labs: Laboratory Results - last 24 hr 08/02/18 08/02/18 14:01 14:01 Hepatitis A IgM Ab Negative Hep Bs Antigen Negative Hep Bs Antibody Positive Hep B Core IgM Ab Negative Hepatitis C Antibody Negative Assessment & Plan (1) Bacteremia Status: Acute (2) Elevated liver enzymes Status: Acute (3) Fever Status: Acute (4) Vomiting Status: Acute - Assessment and Plan (Free Text) Assessment: CT abdomen reveals nonspecific findings Has had no diarrhea whatsoever and now has no tenderness Has E coli bacteremia and elevated LFT's ( possibly reactive ) No RUQ tenderness at present to suggest cholecystitis or liver abscess Consider repeat MRI abdomen as well as HIDA scan and GI eval cont IV antibiotics check stool cultures
--- NOTE | 2018-08-02 21:56 | CP.PCM.PN ---
Subjective - Date & Time of Evaluation Date of Evaluation: 08/02/18 Time of Evaluation: 07:40 - Subjective Subjective: dictated Objective - Vital Signs/Intake and Output Vital Signs (last 24 hours): Temp Pulse Resp BP Pulse Ox 98.1 F 88 20 113/74 98 08/02/18 16:23 08/02/18 16:23 08/02/18 16:23 08/02/18 16:23 08/02/18 16:23 Intake and Output: 08/02/18 08/03/18 18:59 06:59 Intake Total 2200 Balance 2200 - Medications Medications: Current Medications Acetaminophen (Tylenol 325mg Tab) 650 mg PO Q6 PRN PRN Reason: Headache Last Admin: 08/02/18 04:39 Dose: 650 mg Sodium Chloride (Sodium Chloride 0.9%) 1,000 mls @ 100 mls/hr IV .Q10H TWIN Last Admin: 08/02/18 21:00 Dose: Not Given Ceftriaxone Sodium 2 gm/ (Sodium Chloride) 100 mls @ 100 mls/hr IVPB DAILY TWIN; Protocol Last Admin: 08/02/18 10:19 Dose: 100 mls/hr Ondansetron HCl (Zofran Inj) 4 mg IVP Q6 PRN PRN Reason: Nausea/Vomiting Last Admin: 08/01/18 19:24 Dose: 4 mg - Labs Labs: 07/31/18 17:02 07/31/18 17:02
--- NOTE | 2018-08-03 00:04 | PN ---
DATE: 08/02/2018 SUBJECTIVE: The patient is on IV antibiotics for septicemia. No nausea or vomiting. Seen by ID. PHYSICAL EXAMINATION: VITAL SIGNS: Blood pressure is 113/74, pulse 88, respiratory rate 20, and temperature 98.1. LUNGS: Clear. No rales. No rhonchi. CARDIOVASCULAR SYSTEMS: S1, S2. Regular. ABDOMEN: Soft, nontender. Bowel sounds are positive. ASSESSMENT: 1. Gram-negative septicemia due to diverticulitis. 2. Dehydration. PLAN: Continue antibiotics. Monitor the patient. Sajan Silver MD
[2018-08-03] MEDS: Sodium Chloride 0.9% 1,000 ML IV SCH ×2 (03:30→17:10)
[2018-08-03 08:17] LABS: ALBUMIN 3.2 g/dL (3.5-5.0); ALT/SGPT 76 U/L (9-52); AST/SGOT 90 U/L (14-36); BILIRUBIN,DIRECT 0.2 mg/dL (0.0-0.4)
[2018-08-03] MEDS: cefTRIAXone 2 GM in Sodium Chloride 0.9% 100 ML IVPB SCH (10:43)
--- NOTE | 2018-08-03 21:52 | CP.PCM.PN ---
Subjective - Date & Time of Evaluation Date of Evaluation: 08/03/18 Time of Evaluation: 07:20 - Subjective Subjective: dictated Objective - Vital Signs/Intake and Output Vital Signs (last 24 hours): Temp Pulse Resp BP Pulse Ox 98.4 F 94 H 20 100/65 100 08/03/18 16:24 08/03/18 16:24 08/03/18 16:24 08/03/18 16:24 08/03/18 20:16 Intake and Output: 08/03/18 08/04/18 18:59 06:59 Intake Total 800 Balance 800 - Medications Medications: Current Medications Sodium Chloride (Sodium Chloride 0.9%) 1,000 mls @ 100 mls/hr IV .Q10H TWIN Last Admin: 08/03/18 17:10 Dose: 100 mls/hr Ceftriaxone Sodium 2 gm/ (Sodium Chloride) 100 mls @ 100 mls/hr IVPB DAILY TWIN; Protocol Last Admin: 08/03/18 10:43 Dose: 100 mls/hr Ondansetron HCl (Zofran Inj) 4 mg IVP Q6 PRN PRN Reason: Nausea/Vomiting Last Admin: 08/01/18 19:24 Dose: 4 mg - Labs Labs: 07/31/18 17:02 07/31/18 17:02
--- NOTE | 2018-08-03 21:53 | CP.PCM.PN ---
Subjective - Date & Time of Evaluation Date of Evaluation: 08/03/18 Time of Evaluation: 08:00 - Subjective Subjective: dictated Objective - Vital Signs/Intake and Output Vital Signs (last 24 hours): Temp Pulse Resp BP Pulse Ox 98.4 F 94 H 20 100/65 100 08/03/18 16:24 08/03/18 16:24 08/03/18 16:24 08/03/18 16:24 08/03/18 20:16 Intake and Output: 08/03/18 08/04/18 18:59 06:59 Intake Total 800 Balance 800 - Medications Medications: Current Medications Sodium Chloride (Sodium Chloride 0.9%) 1,000 mls @ 100 mls/hr IV .Q10H TWIN Last Admin: 08/03/18 17:10 Dose: 100 mls/hr Ceftriaxone Sodium 2 gm/ (Sodium Chloride) 100 mls @ 100 mls/hr IVPB DAILY TWIN; Protocol Last Admin: 08/03/18 10:43 Dose: 100 mls/hr Ondansetron HCl (Zofran Inj) 4 mg IVP Q6 PRN PRN Reason: Nausea/Vomiting Last Admin: 08/01/18 19:24 Dose: 4 mg - Labs Labs: 07/31/18 17:02 07/31/18 17:02
--- NOTE | 2018-08-04 01:40 | PN ---
DATE: 08/03/2018 SUBJECTIVE: The patient is afebrile, seen by ID. The patient has blood culture positive for Salmonella. Pending repeat cultures. No fever. No chills. PHYSICAL EXAMINATION: VITAL SIGNS: Blood pressure 100/65, pulse 94, respiratory rate 20, and temperature 98.4. LUNGS: Bilaterally clear. No rales. No rhonchi. CARDIOVASCULAR SYSTEM: S1 and S2. Regular. ABDOMEN: Soft and nontender. Bowel sounds are positive. ASSESSMENT: 1. Septicemia due to Salmonella, continue antibiotics. 2. Dehydration. PLAN: Continue current medications. Monitor the patient. Sajan Silver MD
[2018-08-04] MEDS: Sodium Chloride 0.9% 1,000 ML IV SCH ×4 (05:39→18:32)
[2018-08-04] MEDS: cefTRIAXone 2 GM in Sodium Chloride 0.9% 100 ML IVPB SCH (10:08)
--- NOTE | 2018-08-04 11:12 | US ---
Date of service: 08/03/2018 HISTORY: r/o cholecystitis r/o pyelonephritis COMPARISON: None. TECHNIQUE: Sonographic evaluation of the abdomen. FINDINGS: LIVER: Measures 17.0 cm. Normal echogenicity of the liver parenchyma. There is an echogenic lesion in the right lobe of the liver anteriorly, measuring 5 x 9 x 11 mm. Uncertain significance. Possible hemangioma. No other mass. No biliary dilatation. Smooth contour. GALLBLADDER: Unremarkable. No gallstones. COMMON BILE DUCT: Measures 3 mm. No stones. No dilatation. PANCREAS: Unremarkable as visualized. No mass. No ductal dilatation. RIGHT KIDNEY: Measures 12.4cm. Normal echogenicity. No calculus, mass, or hydronephrosis. LEFT KIDNEY: Measures 12.1cm. Normal echogenicity. No calculus, mass, or hydronephrosis. SPLEEN: Normal in size and contour. No mass. AORTA: No aneurysmal dilatation. IVC: Unremarkable. OTHER FINDINGS: None. IMPRESSION: Incidental 11 mm echogenic lesion in the right lobe of the liver. Possible hemangioma though nonspecific. Mild nonspecific The preliminary findings for this examination were reported by [facility] at 8:28 p.m. on 08/03/2018. There is concurrence of this report with the preliminary findings. Gallbladder mural thickening without cholelithiasis or evidence of cholecystitis.
[2018-08-04] MEDS: Pantoprazole 40 mg EC Tab PO SCH (13:32)
--- NOTE | 2018-08-04 15:46 | CP.PCM.PN ---
Subjective - Date & Time of Evaluation Date of Evaluation: 08/03/18 Time of Evaluation: 08:00 - Subjective Subjective: blood cultures now + for Salmonella will need 14 days theraapy await repeat cultures Objective - Vital Signs/Intake and Output Vital Signs (last 24 hours): Temp Pulse Resp BP Pulse Ox 98.4 F 94 H 20 100/65 98 08/03/18 16:24 08/03/18 16:24 08/03/18 16:24 08/03/18 16:24 08/03/18 16:24 Intake and Output: 08/03/18 08/04/18 18:59 06:59 Intake Total 800 Balance 800 - Medications Medications: Current Medications Sodium Chloride (Sodium Chloride 0.9%) 1,000 mls @ 100 mls/hr IV .Q10H TWIN Last Admin: 08/03/18 17:10 Dose: 100 mls/hr Ceftriaxone Sodium 2 gm/ (Sodium Chloride) 100 mls @ 100 mls/hr IVPB DAILY TWIN; Protocol Last Admin: 08/03/18 10:43 Dose: 100 mls/hr Ondansetron HCl (Zofran Inj) 4 mg IVP Q6 PRN PRN Reason: Nausea/Vomiting Last Admin: 08/01/18 19:24 Dose: 4 mg - Labs Labs: 07/31/18 17:02 07/31/18 17:02 - Constitutional Appears: Well - Head Exam Head Exam: ATRAUMATIC, NORMAL INSPECTION, NORMOCEPHALIC - Eye Exam Eye Exam: EOMI, Normal appearance, PERRL Pupil Exam: NORMAL ACCOMODATION, PERRL - ENT Exam ENT Exam: Mucous Membranes Moist, Normal Exam - Neck Exam Neck Exam: Full ROM, Normal Inspection. absent: Lymphadenopathy - Respiratory Exam Respiratory Exam: Clear to Ausculation Bilateral, NORMAL BREATHING PATTERN - Cardiovascular Exam Cardiovascular Exam: REGULAR RHYTHM, +S1, +S2. absent: Murmur - GI/Abdominal Exam GI & Abdominal Exam: Soft, Normal Bowel Sounds. absent: Tenderness - Rectal Exam Rectal Exam: Deferred - Exam Exam: NORMAL INSPECTION - Extremities Exam Extremities Exam: Full ROM, Normal Capillary Refill, Normal Inspection. absent: Joint Swelling, Pedal Edema - Back Exam Back Exam: NORMAL INSPECTION - Neurological Exam Neurological Exam: Alert, Awake, CN II-XII Intact, Normal Gait, Oriented x3 - Psychiatric Exam Psychiatric exam: Normal Affect, Normal Mood - Skin Skin Exam: Dry, Intact, Normal Color, Warm Assessment and Plan (1) Bacteremia Status: Acute (2) Elevated liver enzymes Status: Acute (3) Fever Status: Acute (4) Vomiting Status: Acute - Assessment and Plan (Free Text) Assessment: salmonella sepsis need negative blood cultures before switch to PO and discharge cont IV Rocephin
--- NOTE | 2018-08-04 19:02 | CP.PCM.PN ---
Subjective - Date & Time of Evaluation Date of Evaluation: 08/04/18 Time of Evaluation: 07:00 - Subjective Subjective: dictated Objective - Vital Signs/Intake and Output Vital Signs (last 24 hours): Temp Pulse Resp BP Pulse Ox 98.6 F 92 H 20 103/68 99 08/04/18 16:00 08/04/18 16:00 08/04/18 16:00 08/04/18 16:00 08/04/18 16:00 Intake and Output: 08/04/18 08/05/18 18:59 06:59 Intake Total 1180 Balance 1180 - Medications Medications: Current Medications Sodium Chloride (Sodium Chloride 0.9%) 1,000 mls @ 100 mls/hr IV .Q10H TWIN Last Admin: 08/04/18 18:32 Dose: 100 mls/hr Ceftriaxone Sodium 2 gm/ (Sodium Chloride) 100 mls @ 100 mls/hr IVPB DAILY TWIN; Protocol Last Admin: 08/04/18 10:08 Dose: 100 mls/hr Ondansetron HCl (Zofran Inj) 4 mg IVP Q6 PRN PRN Reason: Nausea/Vomiting Last Admin: 08/01/18 19:24 Dose: 4 mg Pantoprazole Sodium (Protonix Ec Tab) 40 mg PO DAILY TWIN Last Admin: 08/04/18 13:32 Dose: 40 mg - Labs Labs: 07/31/18 17:02 07/31/18 17:02
--- NOTE | 2018-08-05 02:16 | PN ---
DATE: 08/04/2018 SUBJECTIVE: The patient is feeling better. She is afebrile. Decreased nausea and vomiting. No chest pain. PHYSICAL EXAMINATION: VITAL SIGNS: Blood pressure 102/68, pulse 92, respiratory rate 20, and temperature 98.6. LUNGS: Clear. CARDIOVASCULAR SYSTEMS: S1 and S2, regular. ABDOMEN: Soft and nontender. Bowel sounds are positive. ASSESSMENT: Septicemia due to Salmonella. PLAN: Continue antibiotics. Monitor the patient. Sajan Silver MD
[2018-08-05] MEDS: Pantoprazole 40 mg EC Tab PO SCH (10:39)
[2018-08-05] MEDS: cefTRIAXone 2 GM in Sodium Chloride 0.9% 100 ML IVPB SCH (10:40)
[2018-08-05] MEDS: Sodium Chloride 0.9% 1,000 ML IV SCH ×2 (15:01→17:38)
--- NOTE | 2018-08-05 15:32 | CP.PCM.PN ---
Subjective - Date & Time of Evaluation Date of Evaluation: 08/05/18 Time of Evaluation: 09:00 - Subjective Subjective: seen on rounds ROS completed chart reviewed patient examined orders written antibiotics renewed Objective - Vital Signs/Intake and Output Vital Signs (last 24 hours): Temp Pulse Resp BP Pulse Ox 97.6 F 78 20 112/72 99 08/05/18 07:50 08/05/18 07:50 08/05/18 07:50 08/05/18 07:50 08/05/18 07:50 Intake and Output: 08/05/18 08/05/18 06:59 18:59 Intake Total 1100 Balance 1100 - Medications Medications: Current Medications Sodium Chloride (Sodium Chloride 0.9%) 1,000 mls @ 100 mls/hr IV .Q10H TWIN Last Admin: 08/05/18 15:01 Dose: Not Given Ceftriaxone Sodium 2 gm/ (Sodium Chloride) 100 mls @ 100 mls/hr IVPB DAILY TWIN; Protocol Last Admin: 08/05/18 10:40 Dose: 100 mls/hr Ondansetron HCl (Zofran Inj) 4 mg IVP Q6 PRN PRN Reason: Nausea/Vomiting Last Admin: 08/01/18 19:24 Dose: 4 mg Pantoprazole Sodium (Protonix Ec Tab) 40 mg PO DAILY TWIN Last Admin: 08/05/18 10:39 Dose: 40 mg - Labs Labs: 07/31/18 17:02 07/31/18 17:02 - Constitutional Appears: Non-toxic, No Acute Distress - Head Exam Head Exam: ATRAUMATIC, NORMAL INSPECTION, NORMOCEPHALIC - Eye Exam Eye Exam: EOMI, Normal appearance, PERRL Pupil Exam: NORMAL ACCOMODATION, PERRL - ENT Exam ENT Exam: Mucous Membranes Moist, Normal Exam - Neck Exam Neck Exam: Full ROM, Normal Inspection. absent: Lymphadenopathy - Respiratory Exam Respiratory Exam: Clear to Ausculation Bilateral, NORMAL BREATHING PATTERN - Cardiovascular Exam Cardiovascular Exam: REGULAR RHYTHM, +S1, +S2. absent: Murmur - GI/Abdominal Exam GI & Abdominal Exam: Soft, Normal Bowel Sounds. absent: Tenderness - Rectal Exam Rectal Exam: Deferred - Exam Exam: NORMAL INSPECTION - Extremities Exam Extremities Exam: Full ROM, Normal Capillary Refill, Normal Inspection. absent: Joint Swelling, Pedal Edema - Back Exam Back Exam: NORMAL INSPECTION - Neurological Exam Neurological Exam: Alert, Awake, CN II-XII Intact, Normal Gait, Oriented x3 - Psychiatric Exam Psychiatric exam: Normal Affect, Normal Mood - Skin Skin Exam: Dry, Intact, Normal Color, Warm Assessment and Plan (1) Bacteremia Status: Acute (2) Elevated liver enzymes Status: Acute (3) Fever Status: Acute (4) Vomiting Status: Acute - Assessment and Plan (Free Text) Assessment: cont IV antibiotics await negative blopod cultures
--- NOTE | 2018-08-05 21:45 | CP.PCM.PN ---
Subjective - Date & Time of Evaluation Date of Evaluation: 08/05/18 Time of Evaluation: 07:00 - Subjective Subjective: dictated Objective - Vital Signs/Intake and Output Vital Signs (last 24 hours): Temp Pulse Resp BP Pulse Ox 98.2 F 81 20 106/70 100 08/05/18 16:00 08/05/18 16:00 08/05/18 16:00 08/05/18 16:00 08/05/18 16:00 Intake and Output: 08/05/18 08/06/18 18:59 06:59 Intake Total 1140 Balance 1140 - Medications Medications: Current Medications Sodium Chloride (Sodium Chloride 0.9%) 1,000 mls @ 100 mls/hr IV .Q10H TWIN Last Admin: 08/05/18 17:38 Dose: 100 mls/hr Ceftriaxone Sodium 2 gm/ (Sodium Chloride) 100 mls @ 100 mls/hr IVPB DAILY TWIN; Protocol Last Admin: 08/05/18 10:40 Dose: 100 mls/hr Ondansetron HCl (Zofran Inj) 4 mg IVP Q6 PRN PRN Reason: Nausea/Vomiting Last Admin: 08/01/18 19:24 Dose: 4 mg Pantoprazole Sodium (Protonix Ec Tab) 40 mg PO DAILY TWIN Last Admin: 08/05/18 10:39 Dose: 40 mg - Labs Labs: 07/31/18 17:02 07/31/18 17:02
--- NOTE | 2018-08-06 02:34 | PN ---
DATE: 08/05/2018 SUBJECTIVE: The patient is afebrile. Feeling better. Better appetite. No nausea or vomiting. Blood culture x1 day is negative. PHYSICAL EXAMINATION: VITAL SIGNS: Blood pressure 106/70, pulse 81, respiratory rate 20, temperature 98.2. LUNGS. Clear. No rales. No rhonchi. CARDIOVASCULAR SYSTEM: S1, S2. Regular. No heaves noted. ABDOMEN: Soft, nontender. Bowel sounds positive. ASSESSMENT: 1. Septicemia due to Salmonella. 2. Dehydration. 3. Abnormal liver function test. Most likely, abnormal liver function tests are related with the Salmonella infection. PLAN: Continue antibiotics. Follow up with ID. The patient has been seen and examined by ID. Sajan Silver MD
[2018-08-06] MEDS: Sodium Chloride 0.9% 1,000 ML IV SCH ×2 (06:13→15:10)
[2018-08-06 07:28] LABS: HEMOGLOBIN 11.2 g/dL (11.0-16.0); MEAN CORPUSCULAR HEMOGLOBIN 28.7 pg (27.0-31.0); MEAN CORPUSCULAR HGB CONC 32.6 g/dL (33.0-37.0); MEAN PLATELET VOLUME 8.9 fL (7.2-11.7); RBC 3.92 Mil/uL (3.80-5.20); RED CELL DISTRIBUTION WIDTH 13.8 % (11.5-14.5); WHITE BLOOD COUNT 4.4 K/uL (4.8-10.8)
[2018-08-06 08:41] LABS: ALBUMIN 3.5 g/dL (3.5-5.0); ALT/SGPT 43 U/L (9-52); AST/SGOT 37 U/L (14-36); BLOOD UREA NITROGEN 2 mg/dL (7-17); GFR NON-AFRICAN AMERICAN > 60
[2018-08-06] MEDS: Pantoprazole 40 mg EC Tab PO SCH (10:52)
[2018-08-06] MEDS: cefTRIAXone 2 GM in Sodium Chloride 0.9% 100 ML IVPB SCH (10:52)
[2018-08-06 11:06] VITALS: RESP 20; O2SAT 99
--- NOTE | 2018-08-06 11:48 | CP.PCM.PN ---
Subjective - Date & Time of Evaluation Date of Evaluation: 08/06/18 Time of Evaluation: 08:00 - Subjective Subjective: improving possible switch to PO rx soon Objective - Vital Signs/Intake and Output Vital Signs (last 24 hours): Temp Pulse Resp BP Pulse Ox 98.4 F 72 20 109/78 99 08/06/18 11:05 08/06/18 11:05 08/06/18 11:05 08/06/18 11:05 08/06/18 11:05 Intake and Output: 08/06/18 08/06/18 06:59 18:59 Intake Total 1000 Balance 1000 - Medications Medications: Current Medications Sodium Chloride (Sodium Chloride 0.9%) 1,000 mls @ 100 mls/hr IV .Q10H TWIN Last Admin: 08/06/18 06:13 Dose: Not Given Ceftriaxone Sodium 2 gm/ (Sodium Chloride) 100 mls @ 100 mls/hr IVPB DAILY TWIN; Protocol Last Admin: 08/06/18 10:52 Dose: 100 mls/hr Ondansetron HCl (Zofran Inj) 4 mg IVP Q6 PRN PRN Reason: Nausea/Vomiting Last Admin: 08/01/18 19:24 Dose: 4 mg Pantoprazole Sodium (Protonix Ec Tab) 40 mg PO DAILY TWIN Last Admin: 08/06/18 10:52 Dose: 40 mg - Labs Labs: 08/06/18 07:17 08/06/18 07:17 Assessment and Plan (1) Bacteremia Status: Acute (2) Elevated liver enzymes Status: Acute (3) Fever Status: Acute (4) Vomiting Status: Acute
[2018-08-06 16:07] VITALS: BP 99/65; PULSE 87; TEMP 97.7
--- NOTE | 2018-08-06 17:24 | CP.PCM.PN ---
Subjective - Date & Time of Evaluation Date of Evaluation: 08/06/18 Time of Evaluation: 17:24 - Subjective Subjective: alert and orientedx3, denies sob, vomiting or distress. Objective - Vital Signs/Intake and Output Vital Signs (last 24 hours): Temp Pulse Resp BP Pulse Ox 97.7 F 87 20 99/65 L 99 08/06/18 16:00 08/06/18 16:00 08/06/18 16:00 08/06/18 16:00 08/06/18 16:00 Intake and Output: 08/06/18 08/06/18 06:59 18:59 Intake Total 2300 Balance 2300 - Medications Medications: Current Medications Ceftriaxone Sodium 2 gm/ (Sodium Chloride) 100 mls @ 100 mls/hr IVPB DAILY TWIN; Protocol Last Admin: 08/06/18 10:52 Dose: 100 mls/hr Ondansetron HCl (Zofran Inj) 4 mg IVP Q6 PRN PRN Reason: Nausea/Vomiting Last Admin: 08/01/18 19:24 Dose: 4 mg Pantoprazole Sodium (Protonix Ec Tab) 40 mg PO DAILY TWIN Last Admin: 08/06/18 10:52 Dose: 40 mg - Labs Labs: 08/06/18 07:17 08/06/18 07:17 Assessment and Plan - Assessment and Plan (Free Text) Assessment: 28 year old female admitted with abdominal pain, vomiting, diagnosed with salmonella in the blood, seen and examined. Alert and orientedx3, denies any pain, tolerating diet well. Discussed with DR Lancaster and DR Silver plan to discharge home today on cipro bid for 10 days. Advised to stay hydrated and follow up in the office in 1 week.
--- NOTE | 2018-08-06 22:55 | CP.PCM.DIS ---
Provider - Provider Date of Admission: 08/01/18 20:24 Attending physician: Sajan Silver MD Consults: 08/04/18 10:39 Physician Consult Routine Comment: Consulting Provider: Eliezer Lancaster Consulting Physician: Eliezer Lancaster Reason for Consult: SALMONELLA IN BLOOD CULTURE Time Spent in preparation of Discharge (in minutes): 30 Hospital Course - Lab Results Lab Results: Micro Results 08/03/18 16:40 Blood Blood Culture - Preliminary NO GROWTH AFTER 3 DAYS 08/03/18 16:44 Blood Blood Culture - Preliminary NO GROWTH AFTER 3 DAYS 07/31/18 16:25 Blood Blood Culture - Final NO GROWTH AFTER 5 DAYS 07/31/18 16:25 Blood Gram Stain - Final TEST NOT PERFORMED 08/03/18 13:38 Stool Stool Culture - Final NO SALMONELLA, SHIGELLA OR CAMPYLOBACTER ISOLATED. 07/31/18 16:55 Blood Blood Culture - Final Salmonella Group D 07/31/18 16:55 Blood Gram Stain - Final 08/03/18 13:38 Stool Ova and Parasite Concentrate Exam - Final Most Recent Lab Values WBC 4.4 K/uL (4.8-10.8) L 08/06/18 07:17 RBC 3.92 Mil/uL (3.80-5.20) 08/06/18 07:17 Hgb 11.2 g/dL (11.0-16.0) 08/06/18 07:17 Hct 34.5 % (34.0-47.0) 08/06/18 07:17 MCV 88.0 fL (81.0-99.0) 08/06/18 07:17 MCH 28.7 pg (27.0-31.0) 08/06/18 07:17 MCHC 32.6 g/dL (33.0-37.0) L 08/06/18 07:17 RDW 13.8 % (11.5-14.5) 08/06/18 07:17 Plt Count 298 K/uL (130-400) D 08/06/18 07:17 MPV 8.9 fL (7.2-11.7) 08/06/18 07:17 Neut % (Auto) 58.2 % (50.0-75.0) 07/31/18 17:02 Lymph % (Auto) 32.3 % (20.0-40.0) 07/31/18 17:02 [place] % (Auto) 9.0 % (0.0-10.0) 07/31/18 17:02 Eos % (Auto) 0.0 % (0.0-4.0) 07/31/18 17:02 Baso % (Auto) 0.5 % (0.0-2.0) 07/31/18 17:02 Neut # (Auto) 2.5 K/uL (1.8-7.0) 07/31/18 17:02 Lymph # (Auto) 1.4 K/uL (1.0-4.3) 07/31/18 17:02 [place] # (Auto) 0.4 K/uL (0.0-0.8) 07/31/18 17:02 Eos # (Auto) 0.0 K/uL (0.0-0.7) 07/31/18 17:02 Baso # (Auto) 0.0 K/uL (0.0-0.2) 07/31/18 17:02 pO2 25 mm/Hg (30-55) L 07/31/18 17:08 VBG pH 7.45 (7.32-7.43) H 07/31/18 17:08 VBG pCO2 38 mmHg (40-60) L 07/31/18 17:08 VBG HCO3 25.5 mmol/L 07/31/18 17:08 VBG Total CO2 27.6 mmol/L (22-28) 07/31/18 17:08 VBG O2 Sat (Calc) 52.5 % (40-65) 07/31/18 17:08 VBG Base Excess 2.4 mmol/L (0.0-2.0) H 07/31/18 17:08 VBG Potassium 3.4 mmol/L (3.6-5.2) L 07/31/18 17:08 Sodium 136.0 mmol/l (132-148) 07/31/18 17:08 Chloride 106.0 mmol/L (98-107) 07/31/18 17:08 Glucose 82 mg/dl (65-105) 07/31/18 17:08 Lactate 1.4 mmol/L (0.7-2.1) 07/31/18 17:08 Sodium 136 mmol/L (132-148) 08/06/18 07:17 Potassium 4.0 mmol/L (3.6-5.2) 08/06/18 07:17 Chloride 105 mmol/L (98-107) 08/06/18 07:17 Carbon Dioxide 25 mmol/L (22-30) 08/06/18 07:17 Anion Gap 10 (10-20) 08/06/18 07:17 BUN 2 mg/dL (7-17) L 08/06/18 07:17 Creatinine 0.5 mg/dL (0.7-1.2) L 08/06/18 07:17 Est GFR ( Amer) > 60 08/06/18 07:17 Est GFR (Non-Af Amer) > 60 08/06/18 07:17 Random Glucose 88 mg/dL (65-105) 08/06/18 07:17 Calcium 9.0 mg/dl (8.6-10.4) 08/06/18 07:17 Phosphorus 3.5 mg/dL (2.5-4.5) 08/06/18 07:17 Magnesium 2.3 mg/dL (1.6-2.3) 08/06/18 07:17 Total Bilirubin 0.3 mg/dL (0.2-1.3) 08/06/18 07:17 Direct Bilirubin 0.2 mg/dL (0.0-0.4) 08/03/18 07:47 AST 37 U/L (14-36) H D 08/06/18 07:17 ALT 43 U/L (9-52) 08/06/18 07:17 Alkaline Phosphatase 118 U/L (38-126) 08/06/18 07:17 Total Protein 6.9 g/dL (6.3-8.3) 08/06/18 07:17 Albumin 3.5 g/dL (3.5-5.0) 08/06/18 07:17 Globulin 3.4 gm/dL (2.2-3.9) 08/06/18 07:17 Albumin/Globulin Ratio 1.0 (1.0-2.1) 08/06/18 07:17 Procalcitonin 0.08 NG/ML (0.19-0.49) L 08/03/18 07:47 Beta HCG, Quant < 2.39 mIU/ML 08/03/18 07:47 Venous Blood Potassium 3.4 mmol/L (3.6-5.2) L 07/31/18 17:08 Urine Color Yellow (YELLOW) 07/31/18 18:56 Urine Clarity Clear (Clear) 07/31/18 18:56 Urine pH 7.0 (5.0-8.0) 07/31/18 18:56 Ur Specific [place] 1.008 (1.003-1.030) 07/31/18 18:56 Urine Protein Negative mg/dL (NEGATIVE) 07/31/18 18:56 Urine Glucose (UA) Normal mg/dL (Normal) 07/31/18 18:56 Urine Ketones Negative mg/dL (NEGATIVE) 07/31/18 18:56 Urine Blood Negative (NEGATIVE) 07/31/18 18:56 Urine Nitrate Negative (NEGATIVE) 07/31/18 18:56 Urine Bilirubin Negative (NEGATIVE) 07/31/18 18:56 Urine Urobilinogen 2.0 mg/dL (0.2-1.0) H 07/31/18 18:56 Ur Leukocyte Esterase Neg [place]/uL (Negative) 07/31/18 18:56 Urine WBC (Auto) < 1 /hpf (0-5) 07/31/18 18:56 Urine RBC (Auto) < 1 /hpf (0-3) 07/31/18 18:56 Ur Squamous Epith Cells 1 /hpf (0-5) 07/31/18 18:56 Urine Bacteria Rare (<OCC) 07/31/18 18:56 Hepatitis A IgM Ab Negative (NEGATIVE) 08/02/18 14:01 Hep Bs Antigen Negative (NEGATIVE) 08/02/18 14:01 Hep Bs Antibody Positive (NEGATIVE) 08/02/18 14:01 Hep B Core IgM Ab Negative (NEGATIVE) 08/02/18 14:01 Hepatitis Be Antigen Non-reactive (Non-reactive) 08/02/18 14:01 Hepatitis C Antibody Negative (NEGATIVE) 08/02/18 14:01 Discharge Exam - Head Exam Head Exam: ATRAUMATIC, NORMAL INSPECTION, NORMOCEPHALIC Discharge Plan - Discharge Medications Prescriptions: Ciprofloxacin HCl [Cipro] 500 mg PO BID #20 tablet - Follow Up Plan Condition: STABLE Disposition: HOME/ ROUTINE Instructions: Ciprofloxacin (Systemic), Sepsis, Adult (DC) Additional Instructions: follow up in the office in 1 week cipro 500mg po bid x10 days increase oral hydration Referrals: Sajan Silver MD [Staff Provider] -
--- NOTE | 2018-08-07 23:35 | DS ---
DISCHARGE DIAGNOSES: 1. Salmonella septicemia. 2. Dehydration. HISTORY OF PRESENT ILLNESS AND HOSPITAL COURSE: This is a 28-year-old [place] female with abdominal pain, nausea, vomiting, found to have Salmonella in the blood. The patient was given intravenous antibiotics. Repeat blood cultures are negative, and she needs 10 more days of p.o. Cipro. Condition upon discharge is stable. She was seen by ID during course of hospitalization. The patient will be followed up by me as outpatient as well. Sajan Silver MD
== END 2018-08-06 17:20 | disposition home or self-care (01) | DRG 872 ==
LOC: C.ER 15:12 → C.9E 17:52 → C.3T 20:22 → OBSVTOIN 08-01 20:24
PROVIDERS: ADMIT Internal Medicine; ATTEND Internal Medicine
DX: A02.1 Salmonella sepsis (principal); K57.92 Diverticulitis of intestine, part unspecified, without perforation or abscess without bleeding; E86.0 Dehydration; Z98.891 History of uterine scar from previous surgery